=== PATIENT | male | born 1945 | race Caucasian/White ===

== ENCOUNTER → 2021-02-24 | Outpatient (CLI) | payer OTHER ==
[2021-02-24 12:37] LABS: Basophils % (A) 1 %; Eosinophils # (A) 0.1 k/uL (0-0.7); Eosinophils % (A) 2 %; HCT 45.2 % (39.0-53.0); HGB 15.1 gm/dL (13.0-17.5); Lymphocytes # (A) 1.2 k/uL (1.0-4.8); Lymphocytes % (A) 25 %; MCH 32.5 pg (25.0-35.0); MCHC 33.4 g/dL (31.0-37.0); MCV 97.4 fL (80.0-100.0); Mean Platelet Volume 8.6; Monocytes # (A) 0.3 k/uL (0-1.0); Monocytes % (A) 6 %; Neutrophils % (A) 65 %; Platelet Count 210 k/uL (150-450); RBC 4.64 m/uL (4.30-5.90); RDW 13.3 % (11.5-15.5); WBC 4.6 k/uL (3.8-10.6)
[2021-02-24 12:43] LABS: ALT 42 U/L (4-49); AST 49 U/L (17-59); African American GFR (CKD) >90 (>60 ml/min/1.73 sqM); Albumin 4.4 g/dL (3.5-5.0); Alkaline Phosphatase 92 U/L (38-126); Anion Gap 6 mmol/L; Bilirubin,Unconjugated 0.7 mg/dL (0.0-1.1); Blood Urea Nitrogen 12 mg/dL (9-20); Calcium 9.3 mg/dL (8.4-10.2); Carbon Dioxide 30 mmol/L (22-30); Chloride 104 mmol/L (98-107); Glucose 110 mg/dL (74-99); Non-African American GFR(CKD) >90 (>60 ml/min/1.73 sqM); Potassium 4.7 mmol/L (3.5-5.1); Sodium 140 mmol/L (137-145); Total Bilirubin 0.6 mg/dL (0.2-1.3); Total Protein 6.9 g/dL (6.3-8.2)
--- NOTE | 2021-02-24 13:41 | CT ---
EXAMINATION TYPE: CT chest w con DATE OF EXAM: 02/24/2021 COMPARISON: None HISTORY: Non-Small Cell Lung CA CT DLP: 564.9 mGycm Automated exposure control for dose reduction was used. CONTRAST: CT scan of the chest is performed with IV Contrast, patient injected with 100 mL of Isovue 300. FINDINGS: LUNGS: Partial lobectomy left lower lobe with parenchymal scarring and clips noted. No evidence for r ecurrent or residual mass. Nodular scarring identified. Focal eventration right hemidiaphragm with ri ght parenchymal basilar scarring and/or atelectasis. Nodular infiltrate at the right medial lung base . MEDIASTINUM: There are no greater than 1 cm hilar or mediastinal lymph nodes. No pericardial effusi on is seen. Thoracic aorta is of normal caliber. The heart is not enlarged. UPPER ABDOMEN: Cholelithiasis. OTHER: No additional significant abnormality is seen. IMPRESSION: Postsurgical changes left lung with areas of parenchymal scarring. No definite recurrent or residual nodule or mass.
== END | disposition home or self-care (01) ==
LOC: RADCTMAIN 11:58
PROVIDERS: ATTEND Internal Medicine Hematology & Oncology
DX: C34.90 Malignant neoplasm of unspecified part of unspecified bronchus or lung (principal); J98.4 Other disorders of lung
CPT/HCPCS: 80048; 80076; 85025; 71260; 36415; Q9967